=== PATIENT | female | born 1940 | race Caucasian/White ===

== ENCOUNTER → 2017-08-04 | Outpatient (CLI) | payer OTHER | LOC: CIMAGING 10:05 | PROVIDERS: ATTEND Family Medicine | DX: R60.0 Localized edema (principal) | CPT/HCPCS: 76705-PO; 93970-PO ==

== ENCOUNTER 2019-01-31 14:52 | Inpatient (IN) | payer OTHER | END 2019-02-05 15:11 | LOC: CED 14:52 → CEDHOLD 17:10 → F3N 19:14 ==